=== PATIENT | female | born 1955 | race Caucasian/White ===

== ENCOUNTER 2021-01-13 05:10 | Observation (INO) ==
--- NOTE | 2021-01-13 05:56 | Emergency Department Note ---
Impression & Plan Syncope, Urinary incontinence, COVID-19 ED Provider Note NAME: KRYSTLE DE LEON AGE: 65 SEX: F ARRIVES VIA: Ambulance INFORMANT: Patient ED PROVIDER(S): Kallie Salazar DO CHIEF COMPLAINT: Syncope PLAN: Disposition: Admitted to the [facility] Hospitalist service Condition: Stable MEDICAL DECISION MAKING: This is a 65-year-old female patient who presents to the emergency department after multiple syncopal events at home. During 2 of those events, the patient had urinary incontinence. The work-up here in the emergency department was essentially negative except for the patient was diagnosed with COVID-19. I remain concerned about the episodes of urinary incontinence during her syncopal events. I discussed the case with the [facility] hospitalist and the patient will require additional work-up to rule out cardiac dysrhythmia versus seizures. The patient repeatedly told me that she was concerned that she had been infected with something from inhaling bat poop while cleaning the attic at an old farm approximately 1 month ago. I am not convinced that this is the cause of her symptoms. She has absolutely no respiratory complaints. O2 saturations remained at 100. She is not coughing. Chest x-ray findings are more consistent with atelectasis versus a pneumonia. Triage Nursing notes reviewed and agree with them. Vital Signs: reviewed and unremarkable Differential diagnosis: Seizure, cardiac dysrhythmia, exhaustion, dehydration, hypoglycemia, syncope, depression, vertigo, orthostasis, posterior circulation stroke ER treatment provided: IV normal saline Diagnostics interpreted by me: ECG: Normal sinus rhythm at a rate of [address] segment elevation or signs of ischemia. There is no ectopy. Cardiac Monitoring: Normal sinus rhythm at a rate of 72 Laboratory studies: See below Imaging studies: As per stat rad CT brain: No acute intracranial finding Chest x-ray: Atelectasis at both lung bases. HPI: 65/F arrives for evaluation of lightheadedness/dizziness. Patient called EMS tonight because she has had 3 separate episodes of syncope throughout the day today. 2 of these episodes led to urinary incontinence. 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 She has felt increasingly lightheaded and dizzy for the past 1 week. She was concerned that she may have been affected by inhaling poop from bats as she was cleaning out an attic approximately 1 month ago. Patient did not sleep at all last night because she was worried about the work that she had to complete today. ROS: See above HPI for pertinent positives & negatives. A total of 10 systems reviewed and were otherwise negative. PAST MEDICAL HISTORY:Patient denies any past medical history and follows with Dr. Palomares PAST SURGICAL HISTORY:See Below FAMILY HISTORY:See Below SOCIAL HISTORY:The patient lives alone HOME MEDICATIONS:See Below ALLERGIES:See Below VITALS:See Below PHYSICAL EXAMINATION: HEENT: Head - normocephalic and atraumatic. Pupils are equal, round, and reactive to light. Extraocular eye muscles are intact and sclera are anicteric. Ears - bilaterally patent canals with noninjected tympanic membranes and no evidence of hemotympanum. Nose - moist nasal mucosa without discharge. Mouth - moist buccal mucosa. Oropharynx is nonerythematous and there is no tonsillar exudate or edema noted. Neck: Supple; no JVD, nuchal rigidity, cervical lymphadenopathy, or auscultated bruits. Heart: Regular rate and rhythm. There is a normal S1 and S2 with no murmurs, clicks, or gallops appreciated. Lungs: Clear to auscultation bilaterally with no wheezes, rales, or rhonchi. Abdomen: Soft, completely nontender, nondistended, with good bowel sounds. There are no palpable pulsatile masses or hepatosplenomegaly. There is no guarding, rigidity, or rebound noted. Extremities: No evidence of cyanosis, clubbing, or edema. There are easily palpable peripheral pulses. Neuro:The patient is awake and alert, oriented to day, time, and place. Muscle strength is 5/5 in all 4 extremities. The patient has equal clicker operator strength and equal pedal push and pull. There are no cerebellar signs. Cranial nerves II through XII are grossly intact ED COURSE: Times/Reassessments: 0540: The patient was evaluated in room C 12. A complete history and physical was performed. Laboratory studies were drawn as above. A twelve-lead EKG was obtained as described above. An order was placed for isaias nuous cardiac monitoring. She was in a normal sinus rhythm at a rate of 72. The patient went for CT scan of the brain as described above. She had a chest x-ray as described above. I reviewed the results of laboratory studies, x-ray findings and CT findings with the patient. I explained to her that I was concerned about the possibility of seizures or cardiac arrhythmia given the urinary incontinence with her syncopal events. During routine Covid testing for admission, the patient was positive. 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 Kallie Salazar DO Past Med/Surg History Medical History Abnormal glucose Dyslipidemia Surgical History S/P appendectomy Family History Mother Myocardial infarction Congestive heart failure Father Congestive heart failure Coronary heart disease Brother Rheumatic fever Denies family history of Ovarian cancer Prostate cancer Breast cancer Colorectal cancer Social History Smoking Status: Never smoker Second Hand Exposure: No; Hx Alcohol Use: No Hx Substance Use: No Preferred Language: Swedish Communication Ability: Effective Visual Impairment: No Limitations Hearing Ability: Normal Rag Baler Required: No Beliefs That Will Affect Care: None marital status: Single Current Living Situation: Alone current occupational status: employed current occupation: has a [employer] Feels Safe at Home: Yes Childhood Exposure to Second-Hand Smoke: Yes Diet Comment: organic, little meat, mostly vegetables and fruit Dental Care, Regularly: Yes Physical Activity Frequency: Daily Seatbelt Use: always Sunscreen Use: Yes Assistive Devices: None Allergies Allergies Allergy/AdvReac Type Severity Reaction Status Date / Time acetaminophen AdvReac Verified 10/13/20 11:05 [From Darvocet-N] propoxyphene AdvReac Verified 10/13/20 11:05 [From Darvocet-N] Home Meds Home Medications Medication Instructions Recorded Confirmed Inflamma-K 1 ea TOPICAL DAILY 01/13/21 01/13/21 ascorbic acid (vitamin C) [Vitamin 500 mg PO Q12H 01/13/21 01/13/21 C] calcium carbonate [Calcium 500] 500 mg PO DAILY 01/13/21 01/13/21 cyanocobalamin (vitamin B-12) 1,000 mcg PO BID 01/13/21 01/13/21 [Vitamin B-12] evening primrose oil 500 mg PO DAILY 01/13/21 01/13/21 multivitamin 1 tab PO DAILY 01/13/21 01/13/21 Results & Data (ED) Vital Signs Vital Signs - 24 hr 01/13/21 05:16 01/13/21 05:20 01/13/21 05:26 Temperature 36.3 C L Temperature Source Oral Pulse Rate 77 71 73 Pulse Rate from SpO2 Sensor 72 74 Respiratory Rate 16 18 13 Respiratory Effort / Characteristics Non-Labored Respiratory Depth Normal Blood Pressure 144/70 H 130/77 Blood Pressure Mean 94 94 Pulse Oximetry 98 97 97 Oxygen Delivery Method Room Air Sepsis Recent Fever Within 48 Hours No Sepsis New/Unexplained Change in Mental Status N/A Sepsis Action Taken by Nursing No Action Required 01/13/21 05:30 01/13/21 05:31 Temperature Temperature Source Pulse Rate 72 72 Pulse Rate from SpO2 Sensor 73 73 Respiratory Rate 19 15 Respiratory Effort / Characteristics Respiratory Depth Blood Pressure 133/75 Blood Pressure Mean 94 Pulse Oximetry 97 96 Oxygen Delivery Method Sepsis Recent Fever Within 48 Hours Sepsis New/Unexplained Change in Mental Status Sepsis Action Taken by Nursing Laboratory Data Result diagrams: 01/13/21 Unknown 01/13/21 Unknown Lab Results 01/13/21 01/13/21 01/13/21 Range/Units 07:33 07:33 07:45 Urine Color Yellow Urine Appearance Clear (Clear) Urine pH 6.5 (4.5-7.5) Ur Specific [place] 1.021 (1.000-1.030) Urine Protein 1+ H (Negative) Urine Glucose (UA) Negative (Negative) Urine Ketones 1+ H (Negative) Urine Blood Negative (Negative) Urine Nitrite Negative (Negative) Urine Bilirubin Negative (Negative) Urine Urobilinogen Negative (Negative) Ur Leukocyte Esterase Negative (Negative) Urine WBC (Auto) 1-5 (0-5) /hpf Urine RBC (Auto) 5-10 H (0-4) /hpf U Hyaline Cast (Auto) 1-5 (0-5) /lpf U Epithel Cells (Auto) 20-30 H (0-5) /lpf Urine Bacteria (Auto) Negative (Negative) COVID-19 Eval Order CovFluRsv at [facility] SARS-CoV-2 (PCR) POSITIVE A* (Negative) Influenza Type A (PCR) Negative (Neg) Influenza Type B (PCR) Negative (Neg) RSV (RT-PCR) Negative (Neg) Administered Medications Discontinued Medications Enoxaparin Sodium (Enoxaparin Inj 40 Mg/0.4 Ml Syr) 40 mg SQ Q24H PATY Stop: 02/12/21 10:59 Last Admin: 01/14/21 11:06 Dose: Not Given Documented by: [id number] Admin: 01/13/21 11:50 Dose: 40 mg Documented by: [id number] Gadobutrol (Gadobutrol 65ml Vial) 5.5 ml IV ONCE ONE Stop: 01/13/21 12:36 Last Admin: 01/13/21 12:36 Dose: 5.5 ml Documented by: [id number] Sodium Chloride (Nss) 500 mls @ 999 mls/hr IV .Q31M ONE Stop: 01/13/21 08:04 Last Infusion: 01/13/21 08:51 Dose: 0 mls/hr Documented by: [id number] Admin: 01/13/21 08:13 Dose: 999 mls/hr Documented by: [id number] Discharge Plan Visit Data Chief Complaint: Syncope ED Provider: Kallie Salazar Discharge Problem: Syncope, Urinary incontinence, COVID-19 Patient Disposition: Admitted As Inpatient Condition: Good Discharge Instructions Interventions: ED Discharge Assessment Last Done: 01/13/21 09:48 Discharge Problem: Syncope Qualifiers: Syncope type: unspecified Qualified Code(s): R55 - Syncope and collapse Urinary incontinence Qualifiers: Urinary Incontinence type: unspecified incontinence Qualified Code(s): R32 - Unspecified urinary incontinence
[2021-01-13 06:33] LABS: Alanine Aminotransferase 15 U/L (12-78); Albumin Level 2.8 gm/dl (3.4-5.0); Aspartate Aminotransferase 14 U/L (15-37); BUN Creatinine Ratio 25.9 (10-20); Basophils # (auto) 0.01 K/uL (0-0.2); Basophils % (auto) 0.2 %; Blood Urea Nitrogen 14 mg/dl (7-18); Calcium 8.6 mg/dl (8.5-10.1); Carbon Dioxide 24 mmol/L (21-32); Chloride 102 mmol/L (98-107); Creatinine Clr Calc Pharmacy 88.5 ml/min; Est GFR (Non-African American) 98.3; Glucose 104 mg/dl (70-99); Hematocrit (blood only) 39.6 % (37-47); Hemoglobin 13.5 g/dL (12.0-16.0); Lymphocytes # (auto) 0.88 K/uL (1.2-3.4); Mean Corpuscular Hemoglobin 28.8 pg (25-34); Mean Corpuscular Hgb Conc 34.1 g/dL (32-36); Mean Corpuscular Volume 84.4 fL (80-100); Mean Platelet Volume 9.3 fL (7.4-10.4); Monocytes # (auto) 0.51 K/uL (0.11-0.59); Monocytes % (auto) 9.9 %; Neutrophils # (auto) 3.77 K/uL (1.4-6.5); Neutrophils % (auto) 72.9 %; Platelet Count 345 K/uL (130-400); RDW Coefficient of Variation 13.4 % (11.5-14.5); RDW Standard Deviation 40.9 fL (36.4-46.3); Red Blood Count 4.69 M/uL (4.2-5.4); Sodium 135 mmol/L (136-145); White Blood Count 5.17 K/uL (4.8-10.8)
--- NOTE | 2021-01-13 06:40 | CT Scan Report ---
CT OF THE HEAD WITHOUT CONTRAST CLINICAL HISTORY: syncope COMPARISON STUDY: No previous studies for comparison. CT DOSE: 537.48 mGy.cm TECHNIQUE: Helical axial images of the head were obtained without IV contrast. Automated exposure con trol was utilized for the study. A dose lowering technique was utilized adhering to the principles o f ALARA. FINDINGS: No acute intracranial hemorrhage, midline shift or mass effect is present. The ventricular system is unremarkable. The basal cisterns are patent. No extra-axial collections are present. There are no findings to suggest acute dural sinus thrombosis or acute territorial infarct. No significant calvarial abnormalities are present. Minimal left posterior ethmoid sinus mucosal thickening with sec retions is noted. IMPRESSION: No acute intracranial findings. ACT 112: Negative or not required by law. Electronically signed by: Dario Weiss M.D. 01/13/2021 6:38 AM
--- NOTE | 2021-01-13 06:41 | XRay Report ---
XR chest 1V portable CLINICAL HISTORY: dizzy COMPARISON STUDY: Chest radiograph April 30, 2008. FINDINGS: Lung volumes are normal. No pneumothorax or pleural effusion is present. Linear left basila r opacity favors atelectasis. Mild right basilar opacity is present. Mild enlargement of the cardiac silhouette is present. IMPRESSION: 1. Mild right basilar opacity which could reflect an infectious process or atelectasis. 2. Left basilar opacity suggestive of atelectasis. ACT 112: Negative or not required by law. Electronically signed by: Dario Weiss M.D. 01/13/2021 6:40 AM
[2021-01-13 06:44] LABS: Albumin Globulin Ratio 0.6 (0.9-2); Alkaline Phosphatase 78 U/L (45-117); Bilirubin,Total 0.4 mg/dl (0.2-1); Globulin 4.9 gm/dl (2.5-4.0); Total Protein 7.7 gm/dl (6.4-8.2); Troponin I < 0.015 ng/ml (0-0.045)
[2021-01-13] MEDS ORDERED: SODIUM CHLORIDE 0.9% 500 ML IV ONE (07:34)
[2021-01-13 08:00] LABS: Appearance Urine Clear (Clear); Bacteria Urine Automated Negative (Negative); Bilirubin Urine Negative (Negative); Blood Urine Negative (Negative); Color Urine Yellow; Epithelial Cell Urine Auto 20-30 /lpf (0-5); Glucose Urine UA Negative (Negative); Ketones Urine 1+ (Negative); Leukocyte Esterase Urine Negative (Negative); Nitrite Urine Negative (Negative); Protein Urine 1+ (Negative); Specific Gravity Urine 1.021 (1.000-1.030); Urobilinogen Urine Negative (Negative); pH Urine 6.5 (4.5-7.5)
[2021-01-13 08:44] LABS: Influenza A virus by PCR Negative (Neg); Influenza B virus by PCR Negative (Neg); RSV by PCR Negative (Neg)
[2021-01-13 09:02] LABS: SARS CoV2 RNA(COVID-19) InHosp POSITIVE (Negative)
[2021-01-13] MEDS ORDERED: ONDANSETRON INJ 2 MG/ML 2 ML VIAL IV PRN (10:22)
[2021-01-13] MEDS: ENOXAPARIN INJ 40 MG/0.4 ML SYR SQ SCH (11:50)
[2021-01-13] MEDS ORDERED: GADOBUTROL 65ML VIAL IV ONE (12:35)
--- NOTE | 2021-01-13 12:51 | Magnetic Resonance Report ---
MR brain wo/w con HISTORY: 65 years-old Female recurrent syncope, incontinence acute syncope with incontinence COMPARISON: Head CT of same day TECHNIQUE: Multiple multisequence MRI the brain was obtained both with and without the use of 5.5 mL Gadavist FINDINGS: No restricted diffusion. No acute intracranial hemorrhage, midline shift, abnormal extra-axial collec tion, hydrocephalus or intracranial mass. No pathologic blooming artifact. Minimal subcortical/perive ntricular T-2/flair hyperintense foci, notably within the right frontal lobe on image 10. No abnormal enhancement. Cerebral venous sinuses and major arterial flow voids are patent. Trace mastoid effusio ns. Mild polypoid mucosal thickening of the maxillary sinuses. The skull, orbits and soft tissues are unremarkable. IMPRESSION: 1. No acute intracranial abnormality. 2. Minimal T2/FLAIR hyperintense foci throughout within the white matter are nonspecific and may repr esent early chronic microvascular ischemic disease. 3. No abnormal enhancement. ACT 112: Negative or not required by law. The above report was generated using voice recognition software. It may contain grammatical, syntax o r spelling errors. Electronically signed by: Dany Gill M.D. 01/13/2021 12:49 PM
--- NOTE | 2021-01-13 15:12 | History & Physical Report ---
Date of Service January 13, 2021 Assessment & Plan (1) Syncope: unsure etiology, could be related to COVID infection monitor on tele for any arrhythmias MRI brain negative for stroke, tumor echo with EF 65%, normal valves, small pericardial effusion with no evidence of tamponade no signs of bacterial infection electrolytes stable, renal function normal will have her walk tomorrow, check orthostatic vitals likely okay to go home tomorrow, will get 30 day monitor at home in case she has further episodes (2) Urinary incontinence: unclear etiology, happens during syncope MRI brain normal UA without signs of infection (3) COVID-19 virus infection: symptoms of weakness, malaise, dry cough no dyspnea, no hypoxemia, no fever/chills no role for treatment infection could be contributing to syncope with weakness? Admission and Anticipated Discharge Date Admission Date: January 13, 2021 History of Present Illness Chief Complaint: I passed out three times Primary Care Provider: Mario Palomares MD 65 yo female normally in good health who has felt weak, dizzy, malaise the past few days and then yesterday she had two separate episodes of syncope. She said that maybe one or two days ago she had another episode of syncope. She said all three episodes happened in her kitchen, she was standing and started to feel light headed and dizzy, like she was going to pass out. No chest pain, no palpitations, no diaphoresis. Each time she sat down in a chair and then proceeded to lose consciousness and when she woke she realized she had urinated. She was concerned about the urinary incontinence more than anything else. She said she was alert and oriented after the episodes. All three episodes were unwitnessed. Never had episodes like this before. She admits to a history of weak feelings and dizziness if she does not eat or drink enough. She came to the ED for evaluation. CT head was normal, CXR clear, EKG without changes, CBC and BMP normal. She tested positive for COVID. She was surprised by this but she said she was a little relieved because she had an answer for her symptoms. She was unsure where she would have contracted COVID. She denied any recent fe anne/chills, dyspnea, loss of taste/smell or diarrhea. She did admit to a mild dry cough. No hypoxia on vitals. Allergies Allergy/AdvReac Type Severity Reaction Status Date / Time acetaminophen AdvReac Verified 10/13/20 11:05 [From Darvocet-N] propoxyphene AdvReac Verified 10/13/20 11:05 [From Darvocet-N] Home Medications Medication Instructions Recorded Confirmed Type ascorbic acid (vitamin C) [Vitamin 500 mg PO Q12H 01/13/21 01/13/21 History C] calcium carbonate [Calcium 500] 500 mg PO DAILY 01/13/21 01/13/21 History cyanocobalamin (vitamin B-12) 1,000 mcg PO BID 01/13/21 01/13/21 History [Vitamin B-12] diclofenac-me [id number] 1 ea TOPICAL DAILY 01/13/21 01/13/21 History [Inflamma-K] evening primrose oil [Evening 500 mg PO DAILY 01/13/21 01/13/21 History [place]] multivitamin 1 tab PO DAILY 01/13/21 01/13/21 History Past Med/Surg History Medical History Abnormal glucose Dyslipidemia Surgical History S/P appendectomy Family History Mother Myocardial infarction Congestive heart failure Father Congestive heart failure Coronary heart disease Brother Rheumatic fever Denies family history of Ovarian cancer Prostate cancer Breast cancer Colorectal cancer Social History Smoking Status: Never smoker Second Hand Exposure: No; Do You Dip or Chew Tobacco: No; Tobacco Cessation Education Requested by Patient: No Hx Alcohol Use: No Hx Substance Use: No Preferred Language: Armenian Communication Ability: Effective Visual Impairment: No Limitations Hearing Ability: Normal 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 Beliefs That Will Affect Care: None marital status: Single Current Living Situation: Alone current occupational status: employed current occupation: has a [employer] Other Information That Helps Us Care for You: No Feels Safe at Home: Yes Childhood Exposure to Second-Hand Smoke: Yes Diet Comment: organic, little meat, mostly vegetables and fruit Dental Care, Regularly: Yes Physical Activity Frequency: Daily Seatbelt Use: always Sunscreen Use: Yes Review of Systems Review of Systems: All systems reviewed & are unremarkable except as noted in HPI & below Physical Exam Constitutional: WD/WN, vitals as above + thin; no acute distress Eyes: PERRL, conjunctivae normal, anicteric sclerae ENMT: external ear and nose normal, oropharynx normal Neck: trachea midline, no thyromegaly Respiratory: normal respiratory effort, lungs clear to auscultation Cardiovascular: RRR, no murmur, no edema Gastrointestinal (Abdomen): normal bowel sounds, soft, nontender, no hepatosplenomegaly Musculoskeletal: no cyanosis or clubbing, extremities motor strength 5/5 Skin: no rashes, warm and dry Neurologic: patellar DTR's 2+ bilat, sensation intact and PERRL, EOMI, accommodation nl, no face palsy, no dysarthria Psychiatric: A+Ox3, euthymic affect Lymphatic: no cervical or axillary lymphadenopathy Results & Data Results & Data ([facility]) Vital Signs (Past 12 Hours) Vital Signs Temp Pulse Pulse Resp BP BP Pulse Ox 01/13/21 14:34 36.9 C 76 19 121/74 94 01/13/21 11:45 36.9 C 69 19 139/77 97 01/13/21 10:59 72 01/13/21 10:30 36.8 C 67 18 128/80 94 01/13/21 10:22 36.8 C 67 18 128/80 94 01/13/21 10:00 94 01/13/21 09:00 71 18 118/64 96 01/13/21 07:37 94 01/13/21 07:01 70 18 118/70 97 01/13/21 06:00 68 17 124/66 97 01/13/21 05:31 72 15 96 01/13/21 05:30 72 19 133/75 97 01/13/21 05:26 73 13 97 01/13/21 05:20 71 18 130/77 97 01/13/21 05:16 36.3 C L 77 16 144/70 H 98 Laboratory Results Laboratory Results - last 24 hr 01/13/21 01/13/21 01/13/21 07:33 07:33 07:45 WBC RBC Hgb Hct MCV MCH MCHC RDW Std Deviation RDW Coeff of Ray Plt Count MPV Immature Gran % (Auto) Neut % (Auto) Lymph % (Auto) [place] % (Auto) Eos % (Auto) Baso % (Auto) Neut # (Auto) Lymph # (Auto) [place] # (Auto) Eos # (Auto) Baso # (Auto) Immature Gran # (Auto) Sodium Potassium Chloride Carbon Dioxide Anion Gap BUN Creatinine Est Cr Clr Drug Dosing Est GFR ( Amer) Est GFR (Non-Af Amer) BUN/Creatinine Ratio Glucose Calcium Magnesium Total Bilirubin AST ALT Alkaline Phosphatase Troponin I Total Protein Albumin Globulin Albumin/Globulin Ratio TSH Urine Color Yellow Urine Appearance Clear Urine pH 6.5 Ur Specific [place] 1.021 Urine Protein 1+ H Urine Glucose (UA) Negative Urine Ketones 1+ H Urine Blood Negative Urine Nitrite Negative Urine Bilirubin Negative Urine Urobilinogen Negative Ur Leukocyte Esterase Negative Urine WBC (Auto) 1-5 Urine RBC (Auto) 5-10 H U Hyaline Cast (Auto) 1-5 U Epithel Cells (Auto) 20-30 H Urine Bacteria (Auto) Negative COVID-19 Eval Order [facility]FluRsv at [facility] SARS-CoV-2 (PCR) POSITIVE A* Influenza Type A (PCR) Negative Influenza Type B (PCR) Negative RSV (RT-PCR) Negative 01/13/21 01/13/21 Unknown Unknown WBC 5.17 RBC 4.69 Hgb 13.5 Hct 39.6 MCV 84.4 MCH 28.8 MCHC 34.1 RDW Std Deviation 40.9 RDW Coeff of Ray 13.4 Plt Count 345 MPV 9.3 Immature Gran % (Auto) 0.0 Neut % (Auto) 72.9 Lymph % (Auto) 17.0 [place] % (Auto) 9.9 Eos % (Auto) 0.0 Baso % (Auto) 0.2 Neut # (Auto) 3.77 Lymph # (Auto) 0.88 L [place] # (Auto) 0.51 Eos # (Auto) 0.00 Baso # (Auto) 0.01 Immature Gran # (Auto) 0.00 Sodium 135 L Potassium 4.0 Chloride 102 Carbon Dioxide 24 Anion Gap 9.0 BUN 14 Creatinine 0.54 L Est Cr Clr Drug Dosing 88.5 Est GFR ( Amer) 114.0 Est GFR (Non-Af Amer) 98.3 BUN/Creatinine Ratio 25.9 H Glucose 104 H Calcium 8.6 Magnesium 2.0 Total Bilirubin 0.4 AST 14 L ALT 15 Alkaline Phosphatase 78 Troponin I < 0.015 Total Protein 7.7 Albumin 2.8 L Globulin 4.9 H Albumin/Globulin Ratio 0.6 L TSH 1.050 Urine Color Urine Appearance Urine pH Ur Specific [place] Urine Protein Urine Glucose (UA) Urine Ketones Urine Blood Urine Nitrite Urine Bilirubin Urine Urobilinogen Ur Leukocyte Esterase Urine WBC (Auto) Urine RBC (Auto) U Hyaline Cast (Auto) U Epithel Cells (Auto) Urine Bacteria (Auto) COVID-19 Eval Order SARS-CoV-2 (PCR) Influenza Type A (PCR) Influenza Type B (PCR) RSV (RT-PCR) Diagnostic Findings XR chest 1V portable IMPRESSION: 1. Mild right basilar opacity which could reflect an infectious process or atelectasis. 2. Left basilar opacity suggestive of atelectasis. CT head IMPRESSION: No acute intracranial findings. MRI brain IMPRESSION: 1. No acute intracranial abnormality. 2. Minimal T2/FLAIR hyperintense foci throughout within the white matter are nonspecific and may represent early chronic microvascular ischemic disease. 3. No abnormal enhancement. Medications Administered Current Inpatient Medications Enoxaparin Sodium (Enoxaparin Inj 40 Mg/0.4 Ml Syr) 40 mg SQ Q24H [facility] Stop: 02/12/21 10:59 Last Admin: 01/13/21 11:50 Dose: 40 mg Documented by: Ondansetron HCl (Ondansetron Inj 2 Mg/Ml 2 Ml Vial) 4 mg IV Q6H PRN PRN Reason: Nausea Stop: 02/12/21 10:21 Code Status & VTE Plan VTE Prophylaxis Plan VTE Prophylaxis will be ordered: Yes PG Care Time/CCT Total # of Minutes Spent Total Time Spent with Patient: Total time spent is greater than 50% in coordination of care (as documented) at patient's floor/unit and/or counseling patient: Coding Level of Care Code 78529 OBS Care - Level 3 Diagnoses Syncope R55 Urinary incontinence R32 COVID-19 virus infection U07.1
--- NOTE | 2021-01-13 18:03 | XCELERA ---
[id number]
--- NOTE | 2021-01-14 06:14 | Electrocardiogram Report ---
Test Reason : Blood Pressure : / mmHG Vent. Rate : 069 BPM Atrial Rate : 069 BPM P-R Int : 176 ms QRS Dur : 088 ms QT Int : 388 ms P-R-T Axes : 061 077 060 degrees QTc Int : 415 ms Normal sinus rhythm Normal ECG When compared with ECG of 28-APR-2008 12:09, No significant change was found Confirmed by Abhishek Salazar ([id number]) on 01/14/2021 6:14:27 AM Referred By: REFERRED SELF Confirmed By:Ahbishek Salazar
--- NOTE | 2021-01-14 09:57 | Discharge Summary ---
Date of Service January 14, 2021 Admission HPI Per Admitting Provider 65 yo female normally in good health who has felt weak, dizzy, malaise the past few days and then yesterday she had two separate episodes of syncope. She said that maybe one or two days ago she had another episode of syncope. She said all three episodes happened in her kitchen, she was standing and started to feel light headed and dizzy, like she was going to pass out. No chest pain, no palpitations, no diaphoresis. Each time she sat down in a chair and then proceeded to lose consciousness and when she woke she realized she had urinated. She was concerned about the urinary incontinence more than anything else. She said she was alert and oriented after the episodes. All three episodes were unwitnessed. Never had episodes like this before. She admits to a history of weak feelings and dizziness if she does not eat or drink enough. She came to the ED for evaluation. CT head was normal, CXR clear, EKG without changes, CBC and BMP normal. She tested positive for COVID. She was surprised by this but she said she was a little relieved because she had an answer for her symptoms. She was unsure where she would have contracted COVID. She denied any recent fever/chills, dyspnea, loss of taste/smell or diarrhea. She did admit to a mild dry cough. No hypoxia on vitals. Principal Diagnosis Syncope Discharge Exam Constitutional WD/WN, vitals as above + thin; no acute distress Eyes PERRL, conjunctivae normal, anicteric sclerae ENMT external ear and nose normal, oropharynx normal Neck trachea midline, no thyromegaly Respiratory normal respiratory effort, lungs clear to auscultation Cardiovascular RRR, no murmur, no edema Gastrointestinal (Abdomen) normal bowel sounds, soft, nontender, no hepatosplenomegaly Musculoskeletal no cyanosis or clubbing, extremities motor strength 5/5 Skin no rashes, warm and dry Neurologic patellar DTR's 2+ bilat, sensation intact and PERRL, EOMI, accommodation nl, no face palsy, no dysarthria Psychiatric A+Ox3, euthymic affect Lymphatic no cervical or axillary lymphadenopathy Discharge Data Allergies Allergy/AdvReac Type Severity Reaction Status Date / Time acetaminophen AdvReac Verified 10/13/20 11:05 [From Darvocet-N] propoxyphene AdvReac Verified 10/13/20 11:05 [From Darvocet-N] Consultations 01/13/21 08:34 ED Decision to Admit Stat Ordered Studies 01/13/21 05:52 CT head/brain wo con Stat 01/13/21 10:22 MR brain wo/w con Routine Hospital Course (1) Syncope: unsure etiology, could be related to COVID infection with weakness and dehydration monitor on tele for any arrhythmias - no episodes MRI brain negative for stroke, tumor echo with EF 65%, normal valves, small pericardial effusion with no evidence of tamponade no signs of bacterial infection electrolytes stable, renal function normal no syncope while here ambulated in the hallway several hundred feet, no light headed symptoms discharge to home, instructed her to stay well hydrated, increase salt intake, stay well nourished should self isolate for 10 days from diagnosis if she would have recurrent syncope could consider 30 day monitor (2) Urinary incontinence: unclear etiology, happens during syncope MRI brain normal UA without signs of infection (3) COVID-19 virus infection: symptoms of weakness, malaise, dry cough no dyspnea, no hypoxemia, no fever/chills no role for treatment infection could be contributing to syncope with weakness? discharge to home on isolation, no need for Decadron as saturations > 94% Total Time Total Time Spent Total Time Spent (In Minutes): 25 Total Time Includes: Examination of the Patient, Discharge Planning and Medication Reconciliation Discharge Plan Discharge Items Patient Disposition: Home - Self-Care Reason For Visit: SYNCOPE Discharge Diagnosis: Syncope COVID 19 suspected dehydration Condition on Discharge: Good Goals: stay well hydrated, increase salt intake, stay well nourished Activity: Resume your previous activity Driving/Machine Use: No limitations Weightbearing: Full weightbearing Non-emergency contact: Primary Care Provider Call non-emergency contact if: you have any medication questions Follow-up/Referrals: Fransico Palomares MD [Primary Care Provider] - (10 days) Diet: Regular Addtl Attending Provider Instructions: Medications: continue home regimen can add Zinc 220mg daily and Vitamin D 2000 units a day for immune support while you have COVID, take for 10 days Syncope and collapse unclear etiology, most likely combination of having COVID 19 and being dehydrated recommend that you get rest, stay well hydrated (drink at least 2L of fluid a day), increase salt intake stay well nourished you need to be in isolation/quarantine 10 days from positive test which was yesterday, 01/13 monitor yourself for any increasing shortness of breath, monitor for any hypoxia with finger pulse oximeter if you are below 88% on room air you should return to the emergency room MRI brain was negative for stroke/tumor echocardiogram of the heart shows that heart function is normal, normal valves no evidence of heart attack since this was likely caused by COVID and dehydration, will not get an outpatient monitor at this time if you would have another episode then Dr. Palomares could consider getting 30 day event monitor Pending Studies at Discharge: No Stand-Alone Forms: My [facility] [employer], Smoking Cessation Medications and DC Order Prescriptions: Continued multivitamin Tablet 1 tab PO DAILY RF: 0 evening primrose oil 500 mg Capsule 500 mg PO DAILY RF: 0 calcium carbonate [Calcium 500] 500 mg calcium (1,250 mg) Tablet 500 mg PO DAILY RF: 0 ascorbic acid (vitamin C) [Vitamin C] 500 mg Capsule, Extended Release 500 mg PO Q12H RF: 0 cyanocobalamin (vitamin B-12) [Vitamin B-12] 500 mcg Lozenge 1,000 mcg PO BID RF: 0 Inflamma-K 1.5-10-6-3.1 % Kit, Patch, Solution Drops 1 ea TOPICAL DAILY RF: 0 Discharge Orders: Discharge Order (Routine); Ordered 01/14/21 Ordered By: Krishna Sandoval Admission Data Admit Date/Time: 01/13/21 08:35 Attending Provider: Krishna Sandoval Admit Provider: Krishna Sandoval Primary Care Provider: Fransico Palomares Other Providers: Krishna Sandoval Other Interventions: Discharge Summary Assessment (RN) Last Done: 01/14/21 13:10 Coding Level of Care Code 53424 OBS Care - Discharge Diagnoses Syncope R55 Urinary incontinence R32 COVID-19 virus infection U07.1
[2021-01-14] MEDS: ENOXAPARIN INJ 40 MG/0.4 ML SYR SQ SCH (11:06)
--- NOTE | 2021-01-30 09:55 | Coding Query ---
A supporting diagnosis is required for the test/procedure performed on this patient in order for us to be reimbursed by the patient's insurance. Please provide a supporting diagnosis for the following test/procedure listed below next to the test name along with your signature. *If there is no additional diagnosis for this patient that would support the following test/procedure please document that below next to the test/procedure. Test(s)/Procedure(s) that require a supporting diagnosis: LIMITED DOPPLER DIAGNOSIS: Syncope ECHO COLOR FLOW DIAGNOSIS: Syncope Provider Signature: Date: Thank you Erendira Fong [facility] [employer] Information Management Once completed, please kindly fax back to [phone] For questions please call [phone] [facility]ber[facility]
== END 2021-01-14 14:16 | disposition home or self-care (01) ==
LOC: ED 05:10 → 2S 05:10